=== PATIENT | male | born 1955 | race Caucasian/White ===

== ENCOUNTER 2016-09-17 15:02 | Emergency (ER) | payer BC ==
--- NOTE | 2016-09-17 15:45 | ED ---
General Adult HPI - General Chief complaint: Dizziness Stated complaint: lightheaded Time Seen by Provider: 09/17/16 15:22 Source: patient, family, RN notes reviewed Mode of arrival: ambulatory - History of Present Illness Initial comments: This is a 61-year-old male who presents with complaints of cold symptoms for the past 2 weeks with cough he was on erythromycin. He still having some cough he has been having episodes intermittently is some lightheadedness and weakness. 3 days ago while at a meeting he experiences switch resolved after eating breakfast today he was in the store also similar symptoms with lightheadedness this time with a cold sweat and weakness. He feels fine at this time he denies any fevers chills or sweats at this time - Related Data Home Medications Medication Instructions Recorded Confirmed Cholecalciferol [Vitamin D3] 1,000 unit PO DAILY 09/17/16 09/17/16 Levothyroxine Sodium [Synthroid] 100 mcg PO DAILY 09/17/16 09/17/16 Tadalafil [Cialis] 5 mg PO DAILY PRN 09/17/16 09/17/16 Tamsulosin HCl [Flomax] 0.4 mg PO HS 09/17/16 09/17/16 clomiPHENE CITRATE 50 mg PO Q48H 09/17/16 09/17/16 Previous Rx's Medication Instructions Recorded Meclizine [Antivert] 25 mg PO TID #20 tab 09/17/16 Allergies Allergy/AdvReac Type Severity Reaction Status Date / Time shrimp Allergy Rash/Hives Verified 09/17/16 15:44 Sulfa (Sulfonamide Allergy Unknown Verified 09/17/16 15:44 Antibiotics) Review of Systems ROS Statement: Those systems with pertinent positive or pertinent negative responses have been documented in the HPI. ROS Other: All systems not noted in ROS Statement are negative. Past Medical History Past Medical History: Prostate Disorder, Thyroid Disorder History of Any Multi-Drug Resistant Organisms: None Reported Past Surgical History: Orthopedic Surgery Additional Past Surgical History / Comment(s): vascetomy Past Psychological History: No Psychological Hx Reported Smoking Status: Never smoker Past Alcohol Use History: None Reported Past Drug Use History: None Reported General Exam - General Exam Comments Initial Comments: This is a well-developed well-nourished awake alert oriented 3 male General appearance: alert, in no apparent distress Head exam: Present: atraumatic, normocephalic, normal inspection Eye exam: Present: normal appearance, PERRL, EOMI. Absent: scleral icterus, conjunctival injection, periorbital swelling ENT exam: Present: normal exam, mucous membranes moist Neck exam: Present: normal inspection. Absent: tenderness, meningismus, lymphadenopathy Respiratory exam: Present: normal lung sounds bilaterally. Absent: respiratory distress, wheezes, rales, rhonchi, stridor Cardiovascular Exam: Present: regular rate, normal rhythm, normal heart sounds. Absent: systolic murmur, diastolic murmur, rubs, gallop, clicks GI/Abdominal exam: Present: soft, normal bowel sounds. Absent: distended, tenderness, guarding, rebound, rigid Extremities exam: Present: normal inspection, full ROM, normal capillary refill. Absent: tenderness, pedal edema, joint swelling, calf tenderness Back exam: Present: normal inspection Neurological exam: Present: alert, oriented X3, CN II-XII intact Psychiatric exam: Present: normal affect, normal mood Skin exam: Present: warm, dry, intact, normal color. Absent: rash Course Vital Signs 09/17/16 15:03 Temperature 97.2 F L Pulse Rate 77 Respiratory 18 Rate Blood Pressure 125/69 O2 Sat by Pulse 96 Oximetry EKG Findings - EKG Results: EKG: interpreted by SATCY, sinus rhythm (Sinus rhythm rate is 73. Arrival 176 QRS duration 104 QT/QTC of 394/434 moderate voltage criteria for LVH no acute ST -T wave changes.) Medical Decision Making - Medical Decision Making Did discuss the findings with the patient family patient's asymptomatic presentation appears be consistent with an I positional vertigo. - Lab Data Result diagrams: 09/17/16 15:30 09/17/16 15:30 Lab Results 09/17/16 09/17/16 09/17/16 Range/Units 15:30 15:30 15:30 WBC 8.8 (3.8-10.6) k/uL RBC 5.11 (4.30-5.90) m/uL Hgb 16.5 (13.0-17.5) gm/dL Hct 48.2 (39.0-53.0) % MCV 94.4 (80.0-100.0) fL MCH 32.4 (25.0-35.0) pg MCHC 34.4 (31.0-37.0) g/dL RDW 12.6 (11.5-15.5) % Plt Count 260 (150-450) k/uL Neutrophils % 70 % Lymphocytes % 20 % Monocytes % 7 % Eosinophils % 1 % Basophils % 1 % Neutrophils # 6.2 (1.3-7.7) k/uL Lymphocytes # 1.8 (1.0-4.8) k/uL Monocytes # 0.6 (0-1.0) k/uL Eosinophils # 0.1 (0-0.7) k/uL Basophils # 0.1 (0-0.2) k/uL Sodium 140 (137-145) mmol/L Potassium 4.2 (3.5-5.1) mmol/L Chloride 102 (98-107) mmol/L Carbon Dioxide 26 (22-30) mmol/L Anion Gap 12 mmol/L BUN 17 (9-20) mg/dL Creatinine 1.00 (0.66-1.25) mg/dL Est GFR (MDRD) Af Amer >60 (>60 ml/min/1.73 sqM) Est GFR (MDRD) Non-Af >60 (>60 ml/min/1.73 sqM) Glucose 100 H (74-99) mg/dL POC Glucose (mg/dL) (75-99) mg/dL POC Glu Elevator Erector ID Calcium 9.3 (8.4-10.2) mg/dL Magnesium 2.0 (1.6-2.3) mg/dL Total Bilirubin 0.7 (0.2-1.3) mg/dL AST 31 (17-59) U/L ALT 63 (21-72) U/L Alkaline Phosphatase 64 (38-126) U/L Total Creatine Kinase 59 (55-170) U/L CK-MB (CK-2) 0.8 (0.0-2.4) ng/mL CK-MB (CK-2) Rel Index 1.4 Total Protein 7.1 (6.3-8.2) g/dL Albumin 4.2 (3.5-5.0) g/dL 09/17/16 Range/Units 15:46 WBC (3.8-10.6) k/uL RBC (4.30-5.90) m/uL Hgb (13.0-17.5) gm/dL Hct (39.0-53.0) % MCV (80.0-100.0) fL MCH (25.0-35.0) pg MCHC (31.0-37.0) g/dL RDW (11.5-15.5) % Plt Count (150-450) k/uL Neutrophils % % Lymphocytes % % Monocytes % % Eosinophils % % Basophils % % Neutrophils # (1.3-7.7) k/uL Lymphocytes # (1.0-4.8) k/uL Monocytes # (0-1.0) k/uL Eosinophils # (0-0.7) k/uL Basophils # (0-0.2) k/uL Sodium (137-145) mmol/L Potassium (3.5-5.1) mmol/L Chloride (98-107) mmol/L Carbon Dioxide (22-30) mmol/L Anion Gap mmol/L BUN (9-20) mg/dL Creatinine (0.66-1.25) mg/dL Est GFR (MDRD) Af Amer (>60 ml/min/1.73 sqM) Est GFR (MDRD) Non-Af (>60 ml/min/1.73 sqM) Glucose (74-99) mg/dL POC Glucose (mg/dL) 94 (75-99) mg/dL POC Glu Elevator Erector ID Mary Renee Calcium (8.4-10.2) mg/dL Magnesium (1.6-2.3) mg/dL Total Bilirubin (0.2-1.3) mg/dL AST (17-59) U/L ALT (21-72) U/L Alkaline Phosphatase (38-126) U/L Total Creatine Kinase (55-170) U/L CK-MB (CK-2) (0.0-2.4) ng/mL CK-MB (CK-2) Rel Index Total Protein (6.3-8.2) g/dL Albumin (3.5-5.0) g/dL - Radiology Data Radiology results: report reviewed (Imaging was reviewed no acute findings.), image reviewed Disposition Clinical Impression: Benign paroxysmal positional vertigo Disposition: HOME SELF-CARE Condition: Good Instructions: Dizziness (ED) Prescriptions: Meclizine [Antivert] 25 mg PO TID #20 tab
[2016-09-17 15:50] LABS: Glucose,Whole Blood 94 mg/dL (75-99)
[2016-09-17 15:50] LABS: Basophils # (A) 0.1 k/uL (0-0.2); Basophils % (A) 1 %; CH 33.4; CHCM 35.6; Eosinophils # (A) 0.1 k/uL (0-0.7); Eosinophils % (A) 1 %; HCT 48.2 % (39.0-53.0); HDW 2.66; HGB 16.5 gm/dL (13.0-17.5); Luc # (Auto) 0.13; Luc % (Auto) 2; Lymphocytes # (A) 1.8 k/uL (1.0-4.8); Lymphocytes % (A) 20 %; MCH 32.4 pg (25.0-35.0); MCHC 34.4 g/dL (31.0-37.0); MCV 94.4 fL (80.0-100.0); Mean Platelet Volume 6.8; Monocytes # (A) 0.6 k/uL (0-1.0); Monocytes % (A) 7 %; Neutrophils # (A) 6.2 k/uL (1.3-7.7); Neutrophils % (A) 70 %; RBC 5.11 m/uL (4.30-5.90); RDW 12.6 % (11.5-15.5); WBC 8.8 k/uL (3.8-10.6)
[2016-09-17 15:59] LABS: ALT 63 U/L (21-72); AST 31 U/L (17-59); Alkaline Phosphatase 64 U/L (38-126); Anion Gap 12 mmol/L; Blood Urea Nitrogen 17 mg/dL (9-20); Calcium 9.3 mg/dL (8.4-10.2); Carbon Dioxide 26 mmol/L (22-30); Chloride 102 mmol/L (98-107); Glucose 100 mg/dL (74-99); Non-African American GFR(MDRD) >60 (>60 ml/min/1.73 sqM); Potassium 4.2 mmol/L (3.5-5.1); Sodium 140 mmol/L (137-145); Total Bilirubin 0.7 mg/dL (0.2-1.3); Total Protein 7.1 g/dL (6.3-8.2)
--- NOTE | 2016-09-17 16:05 | XR ---
EXAMINATION TYPE: XR chest 2V DATE OF EXAM: 09/17/2016 4:00 PM COMPARISON: NONE HISTORY: Syncope and weakness per patient. Cough per order. TECHNIQUE: Frontal and lateral views of the chest are obtained. FINDINGS: There is no focal air space opacity, pleural effusion, or pneumothorax seen. The cardiac silhouette size is within normal limits. The osseous structures are intact. IMPRESSION: No suspicious acute pulmonary process.
--- NOTE | 2016-09-17 16:27 | CT ---
EXAMINATION TYPE: CT brain wo con DATE OF EXAM: 09/17/2016 4:12 PM COMPARISON: NONE HISTORY: Dizziness and cold symptoms for [address] DLP: 1072.3 mGycm. Automated Exposure Control for Dose Reduction was Utilized. TECHNIQUE: CT scan of the head is performed without contrast. FINDINGS: There is no acute intracranial hemorrhage, mass effect, or midline shift identified. The ventricles and sulci are within normal limits in size. The globes are intact and the visualized sin uses are clear. IMPRESSION: No acute intracranial hemorrhage, mass effect, or midline shift is seen.
[2016-09-17 16:49] LABS: Creatine Kinase MB 0.8 ng/mL (0.0-2.4)
[2016-09-17 17:20] VITALS: BP 128/68; PULSE 74; RESP 20; TEMP 98
== END 2016-09-17 17:20 | disposition home or self-care (01) ==
LOC: EC 15:02
DX: H81.10 Benign paroxysmal vertigo, unspecified ear (principal); R05 Cough; R53.1 Weakness; N42.9 Disorder of prostate, unspecified; E07.9 Disorder of thyroid, unspecified; Z79.899 Other long term (current) drug therapy; Z88.2 Allergy status to sulfonamides; Z91.013 Allergy to seafood
CPT/HCPCS: 36415; 70450; 71020; 80053; 82550; 82553; 83735; 85025; 93005; 99284

== ENCOUNTER → 2017-02-19 | Day surgery (SDC) | payer BC ==
[2017-02-16 11:29] VITALS: BMI 37.5
[~2017-02-19] MED LIST: LACTATED RINGERS 1,000 ML IV SCH; LIDOCAINE 1% 20 ML VIAL (10MG/ML) FOR IV START INTRADERMA ONE; PROPOFOL 10 MG/ML 20 ML VIAL IV ONE
[2017-02-19 07:59] VITALS: TEMP 98.3
--- NOTE | 2017-02-19 09:09 | P.PCN ---
Date of Procedure: 02/19/17 Preoperative Diagnosis: Postoperative Diagnosis: Procedure(s) Performed: Procedure: Colonoscopy and biopsy. Preoperative diagnosis: Screening for neoplasia, patient has history of polyps. Postoperative diagnosis: Diminutive polyp in the distal sigmoid biopsied, otherwise, exam to the cecum within normal limits. Preparation: HalfLytely prep. Sedation: Was provided by anesthesia. Brief clinical history: The patient is a 61-year-old male who is scheduled for this evaluation because of history of polyps. His last exam was around 5 years ago. He has no abdominal complaints, bleeding or anemia. Procedure: With the patient on his left lateral decubitus position and after informed consent and adequate sedation, the perianal area was inspected and it did not show any fissures or fistulas. There were no masses felt on digital rectal examination. The Olympus CFQ 160L video colonoscope was then inserted in the rectum in the usual fashion and advanced to the cecum. The preparation was good. The mucosa appeared healthy. There was a diminutive polyp in the distal sigmoid which I biopsied, otherwise, exam to the cecum was within normal limits. I retroflexed the endoscope in the rectum before the endoscope was withdrawn. The patient tolerated the procedure well. Plan: The patient was reassured. He will follow up with you as planned and I recommended repeat exam in 5 years. Implants: Indications for Procedure: Operative Findings: Description of Procedure:
[2017-02-19 09:11] VITALS: RESP 16
[2017-02-19 10:03] VITALS: BP 125/78; PULSE 67
== END ==
LOC: ORWHC2ENDO 07:46
DX: Z12.11 Encounter for screening for malignant neoplasm of colon (principal); Z86.010 Personal history of colon polyps; D12.5 Benign neoplasm of sigmoid colon; G47.33 Obstructive sleep apnea (adult) (pediatric); Z99.89 Dependence on other enabling machines and devices; E07.9 Disorder of thyroid, unspecified; N40.0 Benign prostatic hyperplasia without lower urinary tract symptoms; Z88.2 Allergy status to sulfonamides; Z79.1 Long term (current) use of non-steroidal anti-inflammatories (NSAID); Z79.899 Other long term (current) drug therapy
CPT/HCPCS: 88305; 45380; J2704

== ENCOUNTER → 2019-01-28 | Outpatient (CLI) | payer BC ==
--- NOTE | 2019-01-28 22:27 | CONS ---
CONSULTATION REASON FOR CONSULTATION: Sleep apnea. Erwin is 63 with established diagnosis of obstructive sleep apnea and has been on CPAP for the past 9 years. The patient was confirmed to have obstructive sleep apnea based on a polysomnogram that was done back in 2010. At that time the patient had a component of severe obstructive and central sleep apnea. The patient was offered CPAP therapy at a pressure of 8 cm of water. The patient's pressure has not been changed since. He is using Wilson FX nose pillows. On today's evaluation, the patient is coming in for a regular check. He is going to bed around 10 p.m., waking up at 7 a.m. in the morning. No snoring. No apneas. No hypersomnia or sleepiness. He is quite refreshed and alert during the day and he has absolutely no complaints. He is currently weighing 245 pounds, which is slightly up compared to his weight back in 2010. Overall he has gained around 15 pounds. No sleep fragmentation. No frequent arousals. No falling asleep while driving his car. No complaints otherwise. PAST MEDICAL HISTORY: 1. BPH. 2. Obstructive sleep apnea. 3. Hypothyroidism. 4. Degenerative arthritis. PAST SURGICAL HISTORY: 1. Vasectomy. 2. Repair of a torn meniscus in both knees. DRUG ALLERGIES: SULFA. OUTPATIENT MEDICATION LIST: 1. Tamsulosin. 2. Synthroid. 3. Ibuprofen. SOCIAL HISTORY: The patient is a nonsmoker. No history of alcoholism. No history of IV drugs. FAMILY HISTORY: Negative for sleep apnea. REVIEW OF SYSTEMS: Fourteen-point review of system was done. Positive findings are all mentioned above in the history of present illness. PHYSICAL EXAMINATION: VITAL SIGNS: BP is 129/79, pulse 82, respirations 16, temperature 98.2, saturation 95% on room air. GENERAL APPEARANCE: Calm, comfortable. No acute distress. Head is atraumatic, normocephalic. NECK: Supple. There is no JVD. No goiter or neck masses. LUNGS: Diminished breath sounds bilaterally; otherwise clear. HEART: Heart sounds are regular rate and rhythm. Normal S1, S2. No S3, S4. No murmurs. ABDOMEN: Soft, nontender. No organomegaly. EXTREMITIES: No edema. No cyanosis or clubbing. NEUROLOGIC: The patient is awake and alert. There are no focal neurological deficits. IMPRESSION: Severe sleep apnea; a combination of obstructive and central based on a sleep study that was done in 2010. The patient's AHI was 52.7 and he has successful treatment with CPAP therapy. Compliance was checked. His AHI is down to 1.3 while being on a CPAP pressure of 8 cm of water. He is using Wilson FX nose pillows. PLAN: The patient is extremely compliant. The patient is still receiving successful CPAP treatment at the pressure of 8 cm of water. I do not see the need to make any adjustments. He is using a newer-generation ResMed CPAP unit. I offered him the AirFit F30i medium-sized mask, which he is willing to try instead of his Wilson FX mask. Encourage weight loss. Optimize sleep hygiene measures. Continue treatment and see me back in a year's time in followup, earlier if needed. ROSSI / YANNI: [id number] /
== END | disposition home or self-care (01) ==
LOC: SLEEP 16:08
PROVIDERS: ATTEND Internal Medicine Critical Care Medicine
DX: G47.33 Obstructive sleep apnea (adult) (pediatric) (principal); G47.31 Primary central sleep apnea; E03.9 Hypothyroidism, unspecified; Z99.89 Dependence on other enabling machines and devices; Z79.899 Other long term (current) drug therapy
CPT/HCPCS: 99211

== ENCOUNTER → 2020-04-26 | Outpatient (CLI) | payer BC ==
--- NOTE | 2020-04-26 07:37 | MR ---
EXAMINATION TYPE: MR Prostate wo/w con DATE OF EXAM: 04/26/2020 COMPARISON: None. IMAGE QUALITY: . INDICATION: Elevated PSA PSA: 7.4 ng/ml on December 03, 2019 Recent Biopsy and Date: April 22, 2012 Pathology Report (If Applicable): benign all random sites TECHNIQUE: Examination was performed using a 3T MRI without an endorectal coil. Multiparametric imaging was perf ormed with T2 multiplanar sequences, axial diffusion weighted imaging and dynamic contrast enhanced i maging, utilizing 11.5 mL intravenous Gadavist gadolinium contrast. FINDINGS: There is no clinically significant cancer identified. PROSTATE VOLUME: 6.9 cm SI x 6.5 cm AP x 6.5 cm LR Vol= 152.6 cc PSA DENSITY: 18.312 ng/ml/cc Markedly enlarged prostate gland consistent with BPH. Marked transitional zone hypertrophy with thinn ing of the peripheral zone. Slight indistinct hypointense in the mid to apical peripheral zone just right of midline for referenc e image 228 series 706. No areas of increased signal on diffusion-weighted imaging or significantly d iminished hypointense signal on ADC mapping in the peripheral zone. T2-weighted images show overall marked heterogeneity without areas of suspicious circumscribed or ind istinct low T2 signal. Prosthetic capsule is maintained. Seminal vesicles symmetric and felt within normal limits. Bladder s hows mild wall thickening and trabeculation. No concerning pelvic fluid collection or adenopathy. Visualized osseous structures are intact. No enid in adenopathy or hernia. IMPRESSION: A focus of clinically significant cancer is not identified. Highest Assessment Category: 2 MRI Stage: T0 N0 M0 based on review of pelvic images. False negative rates for MRI range from 5-20% depending on risk profile. Assessment Categories: 1 ? Very low (clinically significant cancer is highly unlikely to be present) 2 ? Low (clinically significant cancer is unlikely to be present) 3 ? Intermediate (the presence of clinically significant cancer is equivocal) 4 ? High (clinically significant cancer is likely to be present) 5 ? Very high (clinically significant cancer is highly likely to be present)
== END | disposition home or self-care (01) ==
LOC: RADMRIMAIN 06:08
PROVIDERS: ATTEND Urology
DX: R97.20 Elevated prostate specific antigen [PSA] (principal)
CPT/HCPCS: 72197; A9585

== ENCOUNTER 2020-10-14 15:57 | Emergency (ER) | payer BC ==
[2020-10-14 16:48] LABS: Basophils % (A) 1 %; Eosinophils % (A) 0 %; HCT 44.7 % (39.0-53.0); HGB 16.6 gm/dL (13.0-17.5); Lymphocytes # (A) 0.7 k/uL (1.0-4.8); Lymphocytes % (A) 15 %; MCH 33.4 pg (25.0-35.0); MCHC 37.1 g/dL (31.0-37.0); MCV 90.1 fL (80.0-100.0); Monocytes # (A) 0.3 k/uL (0-1.0); Monocytes % (A) 7 %; Neutrophils # (A) 3.5 k/uL (1.3-7.7); Neutrophils % (A) 74 %; Platelet Count 162 k/uL (150-450); RBC 4.96 m/uL (4.30-5.90); RDW 11.8 % (11.5-15.5); WBC 4.7 k/uL (3.8-10.6)
--- NOTE | 2020-10-14 16:49 | ED ---
General Adult HPI - General Chief complaint: Recheck/Abnormal Lab/Rx Stated complaint: Covid+, Low O2 Time Seen by Provider: 10/14/20 16:12 Source: patient, RN notes reviewed, old records reviewed Mode of arrival: ambulatory Limitations: no limitations - History of Present Illness Initial comments: 65-year-old male presenting for reevaluation of symptoms. Patient was diagnosed on the , symptoms began on the . Patient has had pulse ox readings at home in the high 80s. He said increased dyspnea. He said fatigue, poor appetite. Diarrhea. Patient has been on vitamin D as prescribed by his primary care physician. - Related Data Home Medications Medication Instructions Recorded Confirmed Cholecalciferol [Vitamin D3] 1,000 unit PO DAILY 09/17/16 02/19/17 Levothyroxine Sodium [Synthroid] 100 mcg PO DAILY 09/17/16 02/19/17 Tadalafil [Cialis] 5 mg PO Q7D PRN 09/17/16 02/19/17 Tamsulosin HCl [Flomax] 0.4 mg PO HS 09/17/16 02/19/17 clomiPHENE CITRATE 50 mg PO HS 09/17/16 02/19/17 Naproxen Sodium [Aleve] 220 mg PO BID PRN 02/16/17 02/19/17 Allergies Allergy/AdvReac Type Severity Reaction Status Date / Time shrimp Allergy Rash/Hives Verified 10/14/20 16:05 Sulfa (Sulfonamide Allergy Unknown Verified 10/14/20 16:05 Antibiotics) Review of Systems ROS Statement: Those systems with pertinent positive or pertinent negative responses have been documented in the HPI. ROS Other: All systems not noted in ROS Statement are negative. Past Medical History Past Medical History: Prostate Disorder, Sleep Apnea/CPAP/BIPAP, Thyroid Disorder Additional Past Medical History / Comment(s): HX FATTY LIVER. USES CPAP. History of Any Multi-Drug Resistant Organisms: None Reported Past Surgical History: Orthopedic Surgery Additional Past Surgical History / Comment(s): Vascetomy. REPAIR TORN MENISCUS. COLONOSCOPY Past Anesthesia/Blood Transfusion Reactions: No Reported Reaction Past Psychological History: No Psychological Hx Reported Smoking Status: Never smoker Past Alcohol Use History: None Reported, Occasional Past Drug Use History: None Reported - Past Family History Father Family Medical History: Cancer Mother Family Medical History: Cancer General Exam Limitations: no limitations General appearance: alert, in no apparent distress Head exam: Present: atraumatic, normocephalic Eye exam: Present: normal appearance, PERRL ENT exam: Present: mucous membranes dry Neck exam: Present: normal inspection. Absent: tenderness, meningismus Respiratory exam: Present: rales, rhonchi, decreased breath sounds. Absent: respiratory distress Cardiovascular Exam: Present: regular rate, normal rhythm GI/Abdominal exam: Present: soft. Absent: distended, tenderness, guarding Extremities exam: Present: normal inspection, normal capillary refill. Absent: pedal edema Neurological exam: Present: alert, oriented X3, CN II-XII intact. Absent: motor sensory deficit Psychiatric exam: Present: normal affect, normal mood Skin exam: Present: warm, dry, intact. Absent: cyanosis, diaphoretic Course Vital Signs 10/14/20 10/14/20 10/14/20 16:05 17:22 18:54 Temperature 101.7 F H 100.1 F H 99.0 F Pulse Rate 94 85 86 Respiratory 20 16 16 Rate Blood Pressure 115/77 118/56 112/70 O2 Sat by Pulse 93 L 92 L 93 L Oximetry 10/14/20 20:15 Temperature 98.9 F Pulse Rate 84 Respiratory 20 Rate Blood Pressure 118/77 O2 Sat by Pulse 94 L Oximetry EKG Findings - EKG Comments: EKG Findings:: EKG: Normal sinus rhythm, left atrial enlargement, rate of 94, GA interval 170, QRS duration 100, QTC 440, no ST segment elevation, Medical Decision Making - Medical Decision Making Patient has x-ray showing bilateral pneumonia consistent with croup virus. He has a normal CBC, he has a mild hyponatremia 129, mild transaminitis, elevated LDH and CRP. I did discuss admission versus home with this patient. He does not feel dyspneic. His oxygenation is 92% on room air. He is in no respiratory distress. We discussed monoclonal antibody therapy and the patient is agreeable with monoclonal antibodies and does meet criteria. He is transfused in the emergency department and is given strict return parameters. We'll follow with his primary care physician and monitor oxygen at home - Lab Data Result diagrams: 10/14/20 16:30 10/14/20 16:30 Lab Results 10/14/20 10/14/20 10/14/20 Range/Units 16:30 16:30 16:30 WBC 4.7 (3.8-10.6) k/uL RBC 4.96 (4.30-5.90) m/uL Hgb 16.6 (13.0-17.5) gm/dL Hct 44.7 (39.0-53.0) % MCV 90.1 (80.0-100.0) fL MCH 33.4 (25.0-35.0) pg MCHC 37.1 H (31.0-37.0) g/dL RDW 11.8 (11.5-15.5) % Plt Count 162 (150-450) k/uL MPV 7.0 Neutrophils % 74 % Lymphocytes % 15 % Monocytes % 7 % Eosinophils % 0 % Basophils % 1 % Neutrophils # 3.5 (1.3-7.7) k/uL Lymphocytes # 0.7 L (1.0-4.8) k/uL Monocytes # 0.3 (0-1.0) k/uL Eosinophils # 0.0 (0-0.7) k/uL Basophils # 0.0 (0-0.2) k/uL PT 10.5 (9.0-12.0) sec INR 1.0 (<1.2) APTT 23.8 (22.0-30.0) sec D-Dimer 0.40 (<0.60) mg/L FEU Sodium 129 L (137-145) mmol/L Potassium 4.4 (3.5-5.1) mmol/L Chloride 95 L (98-107) mmol/L Carbon Dioxide 26 (22-30) mmol/L Anion Gap 8 mmol/L BUN 23 H (9-20) mg/dL Creatinine 0.98 (0.66-1.25) mg/dL Est GFR (CKD-EPI)AfAm >90 (>60 ml/min/1.73 sqM) Est GFR (CKD-EPI)NonAf 82 (>60 ml/min/1.73 sqM) Glucose 117 H (74-99) mg/dL Plasma Lactic Acid Frank (0.7-2.0) mmol/L Calcium 8.5 (8.4-10.2) mg/dL Magnesium 2.3 (1.6-2.3) mg/dL Total Bilirubin 0.9 (0.2-1.3) mg/dL AST 86 H (17-59) U/L ALT 100 H (4-49) U/L Alkaline Phosphatase 61 (38-126) U/L Lactate Dehydrogenase 1008 H (313-618) U/L C-Reactive Protein 24.5 H (<10.0) mg/L Total Protein 7.2 (6.3-8.2) g/dL Albumin 4.2 (3.5-5.0) g/dL 10/14/20 Range/Units 16:30 WBC (3.8-10.6) k/uL RBC (4.30-5.90) m/uL Hgb (13.0-17.5) gm/dL Hct (39.0-53.0) % MCV (80.0-100.0) fL MCH (25.0-35.0) pg MCHC (31.0-37.0) g/dL RDW (11.5-15.5) % Plt Count (150-450) k/uL MPV Neutrophils % % Lymphocytes % % Monocytes % % Eosinophils % % Basophils % % Neutrophils # (1.3-7.7) k/uL Lymphocytes # (1.0-4.8) k/uL Monocytes # (0-1.0) k/uL Eosinophils # (0-0.7) k/uL Basophils # (0-0.2) k/uL PT (9.0-12.0) sec INR (<1.2) APTT (22.0-30.0) sec D-Dimer (<0.60) mg/L FEU Sodium (137-145) mmol/L Potassium (3.5-5.1) mmol/L Chloride (98-107) mmol/L Carbon Dioxide (22-30) mmol/L Anion Gap mmol/L BUN (9-20) mg/dL Creatinine (0.66-1.25) mg/dL Est GFR (CKD-EPI)AfAm (>60 ml/min/1.73 sqM) Est GFR (CKD-EPI)NonAf (>60 ml/min/1.73 sqM) Glucose (74-99) mg/dL Plasma Lactic Acid Frank 1.1 (0.7-2.0) mmol/L Calcium (8.4-10.2) mg/dL Magnesium (1.6-2.3) mg/dL Total Bilirubin (0.2-1.3) mg/dL AST (17-59) U/L ALT (4-49) U/L Alkaline Phosphatase (38-126) U/L Lactate Dehydrogenase (313-618) U/L C-Reactive Protein (<10.0) mg/L Total Protein (6.3-8.2) g/dL Albumin (3.5-5.0) g/dL Disposition Clinical Impression: Pneumonia due to COVID-19 virus, Hyponatremia Disposition: HOME SELF-CARE Condition: Fair Instructions (If sedation given, give patient instructions): Coronavirus Disease 2019 (COVID-19) Is patient prescribed a controlled substance at d/c from ED?: No Referrals: Steve Littlejohn DO [Primary Care Provider] - 1-2 days Time of Disposition: 19:15
[2020-10-14 17:02] LABS: D-Dimer 0.4 mg/L FEU (<0.60); Partial Thromboplastin Time 23.8 sec (22.0-30.0); Prothrombin Time 10.5 sec (9.0-12.0)
[2020-10-14 17:04] LABS: ALT 100 U/L (4-49); AST 86 U/L (17-59); African American GFR (CKD) >90 (>60 ml/min/1.73 sqM); Albumin 4.2 g/dL (3.5-5.0); Alkaline Phosphatase 61 U/L (38-126); Anion Gap 8 mmol/L; Blood Urea Nitrogen 23 mg/dL (9-20); C Reactive Protein 24.5 mg/L (<10.0); Calcium 8.5 mg/dL (8.4-10.2); Carbon Dioxide 26 mmol/L (22-30); Chloride 95 mmol/L (98-107); Glucose 117 mg/dL (74-99); LDH 1008 U/L (313-618); Magnesium 2.3 mg/dL (1.6-2.3); Non-African American GFR(CKD) 82 (>60 ml/min/1.73 sqM); Potassium 4.4 mmol/L (3.5-5.1); Sodium 129 mmol/L (137-145); Total Bilirubin 0.9 mg/dL (0.2-1.3); Total Protein 7.2 g/dL (6.3-8.2)
[2020-10-14] MEDS ORDERED: ACETAMINOPHEN TAB 500 MG TAB PO STA (17:16)
--- NOTE | 2020-10-14 17:19 | XR ---
EXAMINATION TYPE: XR chest 1V portable DATE OF EXAM: 10/14/2020 COMPARISON: 09/17/2016. HISTORY: Shortness of breath. TECHNIQUE: Single frontal view of the chest is obtained. FINDINGS: There is moderate patchy opacities in the bilateral mid to lower lungs. No pleural effusio n, or pneumothorax seen. The cardiac silhouette size is within normal limits. The osseous structur es are intact. IMPRESSION: Bilateral infiltrates.
[2020-10-14] MEDS ORDERED: DEXAMETHASONE SOD PHOSPHATE 10 MG/ML 1 ML VIAL IV STA (17:58)
[2020-10-14] MEDS ORDERED: SODIUM CHLORIDE 0.9% 500 ML 500 ML IV ONE (18:13)
[2020-10-14] MEDS ORDERED: BAMLANIVIMAB (EUA) 700 MG, ETESEVIMAB (EUA) 1,400 MG in SODIUM CHLORIDE 0.9% 50 ML IVPB ONE (18:45)
[2020-10-14] MEDS ORDERED: SODIUM CHLORIDE 0.9% 50 ML IVPB ONE (19:00)
[2020-10-14 20:58] VITALS: BP 118/77; PULSE 84; RESP 20; TEMP 98.9
[2020-10-15 05:58] LABS: Ferritin 3095.8 ng/mL (22.0-322.0)
== END 2020-10-14 20:17 | disposition home or self-care (01) ==
LOC: EC 15:57
DX: U07.1 COVID-19 (principal); J12.82 Pneumonia due to coronavirus disease 2019; E87.1 Hypo-osmolality and hyponatremia; R74.01 Elevation of levels of liver transaminase levels; R74.02 Elevation of levels of lactic acid dehydrogenase [LDH]; R79.82 Elevated C-reactive protein (CRP); E07.9 Disorder of thyroid, unspecified; G47.30 Sleep apnea, unspecified; Z79.899 Other long term (current) drug therapy; Z79.890 Hormone replacement therapy; Z88.2 Allergy status to sulfonamides; Z91.013 Allergy to seafood; Z99.89 Dependence on other enabling machines and devices
CPT/HCPCS: 36415; 93005; 85379; 80053; 82728; 83605; 83615; 83735; 85025; 85610; 85730; 86140; 84145; 71045; 99285; 96365; 96375; 96361; J1100; Q0245

== ENCOUNTER → 2021-11-22 | Outpatient (CLI) | payer MEDICARE ==
--- NOTE | 2021-11-22 14:03 | P.PN ---
Subjective Progress Note Date: 11/22/21 This is a 66-year-old male patient with known history of obstructive sleep apnea. The patient is coming in for regular checkup regarding his obstructive sleep apnea treatment. His last evaluation was in 2019. The patient has severe CHUNG with an AHI of 52.7. The patient is currently being treated with CPAP at a pressure of 8 cm of water. He is doing extremely well. He remains compliant. He continues to use a airfit N30 i medium size nasal mask. He has no issues or complaints regarding his CPAP machine. The machine is functional. The patient continues to use the machine effectively every day. He has lost weight and he used to weigh around 145 pounds and currently is down to 231. Based on a 30 day compliance evaluation, the patient has been averaging around 8-9 hours of CPAP use per night. His CPAP usage for more than 4 hours at 100%. Leak is noted of 6 L per minute. AHI is down to 1.2. No angina no palpitation. No shortness of breath.the patient was infected with COVID 19 and he is fully recovered at this point in time. No cardiac risk of complications. No angina. No palpitations. No shortness of breath. Objective - Exam BP is 120/83, pulse is 75, respirations 16, temperature is 90.6 to, Ludlow score is at 10, BMI 34.1, weight is 231 and oxygen saturation 96% The patient appeared well nourished and normally developed. Vital signs as documented. Head exam is unremarkable. No scleral icterus or corneal arcus n oted. Neck is without jugular venous distension, thyromegaly, or carotid bruits. Carotid upstrokes are brisk bilaterally. Lungs are clear to auscultation and percussion. Cardiac exam reveals the PMI to be normally sized and situated. Rhythm is regular. First and second heart sounds normal. No murmurs, rubs or gallops. Abdominal exam reveals normal bowel sounds, no masses, no organomegaly and no aortic enlargement. Extremities are nonedematous and both femoral and pedal pulses are normal.Examination of the skin revealed no evidence of significant rashes, suspicious appearing nevi or other concerning lesions.Neurologically, the patient is awake and alert and the patient does not have any focal neurological deficit. Cranial nerves are essentially intact. Assessment and Plan Plan: severe obstructive sleep apnea with an AHI of 52.7 and the patient continues to undergo successful CPAP therapy Chronic hypersomnia, improved current upper score is down to 10 Obesity with a BMI of 34.1 BPH Hypothyroidism Osteoarthritis Plan Continue CPAP therapy at pressure of 8 cm of water The patient has a functional ResMed machine Keep the same mask interface refill all of his supplies including the airfit N30 i medium-size nasal mask Encourage further weight loss See back in 2 years time in follow-up.
== END ==
LOC: SLEEP 13:17
PROVIDERS: ATTEND Internal Medicine Critical Care Medicine
DX: G47.33 Obstructive sleep apnea (adult) (pediatric) (principal); E03.9 Hypothyroidism, unspecified; E66.9 Obesity, unspecified; Z68.34 Body mass index [BMI] 34.0-34.9, adult; N40.0 Benign prostatic hyperplasia without lower urinary tract symptoms; Z99.89 Dependence on other enabling machines and devices; Z88.2 Allergy status to sulfonamides; Z91.013 Allergy to seafood; Z87.891 Personal history of nicotine dependence

== ENCOUNTER → 2022-07-20 | Outpatient (CLI) | payer MEDICARE ==
[2022-07-20 15:22] LABS: HCT 45.7 % (39.6-50.0); HGB 15.2 g/dL (13.0-17.0); MCH 31.4 pg (27.0-32.0); MCHC 33.3 g/dL (32.0-37.0); MCV 94.4 fL (80.0-97.0); Mean Platelet Volume 9.4 fL (9.5-12.2); NRBC Per 100 WBC 0 /100 WBCS (0.0-0.0); Platelet Count 224 X 10*3/uL (140-440); RBC 4.84 X 10*6/uL (4.40-5.60); RDW 12.3 % (11.5-14.5); WBC 5.48 X 10*3/uL (4.50-10.00)
[2022-07-20 16:36] LABS: Anion Gap 14.1 mmol/L (10.00-18.00); BUN/Creat Ratio 17.64 Ratio (12.00-20.00); Blood Urea Nitrogen 16.9 mg/dL (9.0-27.0); Calcium 9.8 mg/dL (8.7-10.3); Carbon Dioxide 22.8 mmol/L (20.0-27.5); Non-African American GFR(CKD) 82.8 (60.0-200.0); Potassium 4.2 mmol/L (3.5-5.5); Prostate Specific Antigen 8.6 ng/mL (0.00-4.50); T4, Free (Free Thyroxine) 1.11 ng/dL (0.800-1.800)
== END | disposition home or self-care (01) ==
LOC: LABWHC1 09:09
PROVIDERS: ATTEND Family Medicine
DX: I10 Essential (primary) hypertension (principal); E03.9 Hypothyroidism, unspecified; E55.9 Vitamin D deficiency, unspecified; N40.0 Benign prostatic hyperplasia without lower urinary tract symptoms
CPT/HCPCS: 36415; 80048; 82306; 83036; 84153; 84439; 84443; 84450; 84460; 85027

== ENCOUNTER → 2022-08-07 | Outpatient (CLI) | payer MEDICARE | END | disposition home or self-care (01) | LOC: LABWHC1 10:30 | PROVIDERS: ATTEND Family Medicine | DX: R97.20 Elevated prostate specific antigen [PSA] (principal) | CPT/HCPCS: 36415; 84153 ==

== ENCOUNTER → 2023-02-08 | Outpatient (CLI) | payer MEDICARE ==
[2023-02-08 17:04] LABS: HCT 44.3 % (39.6-50.0); HGB 15.4 d/dL (13.0-17.0); MCH 32.6 pg (27.0-32.0); MCHC 34.8 d/dL (32.0-37.0); MCV 93.9 FL (80.0-97.0); Mean Platelet Volume 9.3 FL (9.5-12.2); NRBC Per 100 WBC 0 X 10*3/uL (0.00-0.01); Platelet Count 247 X 10*3/uL (140-440); RBC 4.72 X 10*6/uL (4.40-5.60); RDW 12.3 % (11.5-14.5)
[2023-02-08 17:35] LABS: ALT 41 U/L (10-49); AST 25 U/L (14-35); Albumin/Globulin Ratio 2.08 Ratio (1.60-3.17); Alkaline Phosphatase 75 U/L (41-126); Blood Urea Nitrogen 18.6 mg/dL (9.0-27.0); Calcium 9.6 mg/dL (8.7-10.3); Chloride 104 mmol/L (96-109); Chol/HDL Ratio 4.18 Ratio; Globulin 2.4 d/dL (1.6-3.3); Glucose 96 mg/dL (70-110); LDL Cholesterol,Calculated 92.6 mg/dL (0.0-131.0); Potassium 4.7 mmol/L (3.5-5.5); Sodium 141 mmol/L (135-145); T4, Free (Free Thyroxine) 1.23 ng/dL (0.80-1.80); Total Protein 7.4 d/dL (6.2-8.2)
[2023-02-08 22:33] LABS: Bacteria,Urine None Seen (None Seen)
[2023-02-08 22:47] LABS: Appearance,Urine Turbid (Clear); Bilirubin,Urine Negative (Negative); Blood,Urine Negative (Negative); Color,Urine Yellow (Yellow); Ketones,Urine Negative (Negative); Nitrite,Urine Negative (Negative); PH, Urine 5.5; Specific Gravity,Urine 1.018 (1.001-1.030); Urobilinogen,Urine 0.2
== END | disposition home or self-care (01) ==
LOC: LABWHC1 10:16
PROVIDERS: ATTEND Family Medicine
DX: Z00.01 Encounter for general adult medical examination with abnormal findings (principal); E03.9 Hypothyroidism, unspecified; E55.9 Vitamin D deficiency, unspecified; N40.0 Benign prostatic hyperplasia without lower urinary tract symptoms
CPT/HCPCS: 36415; 80053; 80061; 81001; 82306; 83036; 84153; 84439; 84443; 85027

== ENCOUNTER → 2023-02-09 | Outpatient (CLI) | payer MEDICARE | END | disposition home or self-care (01) | LOC: LABWHC1 08:19 | PROVIDERS: ATTEND Family Medicine | DX: Z00.01 Encounter for general adult medical examination with abnormal findings (principal); E55.9 Vitamin D deficiency, unspecified; N40.0 Benign prostatic hyperplasia without lower urinary tract symptoms | CPT/HCPCS: 36415; 82272 ==

== ENCOUNTER → 2023-03-23 | Outpatient (CLI) | payer MEDICARE ==
--- NOTE | 2023-03-24 08:51 | MR ---
EXAMINATION TYPE: MR shoulder LT wo con DATE OF EXAM: 03/23/2023 9:10 PM COMPARISON: NONE HISTORY: Left shoulder pain, difficult to raise arm TECHNIQUE: Multiplanar multispin echo imaging of the left shoulder was performed. FINDINGS: Rotator cuff : There is thickening and heterogeneity of the supraspinatus tendon compatible chronic t endinopathy. Mild tendinosis subscapularis tendon. There is no complete or bursal/articular sided par tial rotator cuff tear. The subscapularis constituent of the rotator cuff is intact. Bursa: No bursal effusion or thickening is seen. Musculature: There is no muscular tear, contusion, or atrophy. Acromioclavicular joint : There are moderate degenerative changes of the acromioclavicular joint. The re is lateral downsloping of the acromion with subacromial spur resulting in moderate impingement. Osseous structures : There are no fractures or regions of abnormal bone marrow signal intensity. Long biceps tendon : The biceps tendon is normally situated within the bicipital groove. No complete or partial biceps tendon tear is present. Small amount of fluid is seen along the biceps tendon sheat h show may reflect biceps tenosynovitis. Glenohumeral Joint fluid : There is no glenohumeral joint effusion. Cartilage and Bone : No focal hyaline cartilage defects are noted. No Hill-Sachs, reverse Hill-Sachs, or bony Bankart lesions are seen. Labrum : There are no SLAP or soft tissue Bankart lesions. No paralabral cysts are seen. OTHER FINDINGS : none IMPRESSION: 1. 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 No evidence for full-thickness tear.
== END | disposition home or self-care (01) ==
LOC: RADMRIMAIN 20:45
PROVIDERS: ATTEND Orthopaedic Surgery
DX: M25.812 Other specified joint disorders, left shoulder (principal); M19.012 Primary osteoarthritis, left shoulder; M19.021 Primary osteoarthritis, right elbow; M77.11 Lateral epicondylitis, right elbow